=== PATIENT | female | born 1945 | race Caucasian/White ===

== ENCOUNTER 2016-09-26 12:42 | Inpatient (IN) | payer MEDICARE, OTHER ==
[~2016-09-26] VITALS: Ht 157.5 cm; Wt 84.5 kg
[2016-09-26] MEDS ORDERED: ONDANSETRON 4 MG VIAL ONE (13:57)
[2016-09-26] MEDS ORDERED: DILAUDID 1 MG/ML AMP ONE ×2 (13:57→20:26)
[2016-09-26] MEDS ORDERED: DUONEB INH ONE (15:15)
[2016-09-26] MEDS ORDERED: MORPHINE 2 MG/ML SYR ONE (18:03)
[2016-09-26] MEDS ORDERED: CEFTRIAXONE 1 GM VIAL ONE (18:44)
[2016-09-26] MEDS ORDERED: AZITHROMYCIN 500 MG VIAL IV ONE (18:44)
[2016-09-26] MEDS ORDERED: SODIUM CHLORIDE 0.9% 100 ML IV ONE (18:44)
[2016-09-26] MEDS ORDERED: SODIUM CHLORIDE 0.9% 250 ML IV ONE (18:44)
[2016-09-26] MEDS ORDERED: SODIUM CHLORIDE 0.9% 500 ML IV ONE (18:48)
[2016-09-26] MEDS ORDERED: BISACODYL EC 5 MG TAB PO PRN (18:50)
[2016-09-26] MEDS ORDERED: MAG HYDROX 30 ML UDC PO PRN (18:50)
[2016-09-26] MEDS ORDERED: SALINE FLUSH 10 ML FLUSH PRN (18:50)
[2016-09-26] MEDS ORDERED: ALU/MAG/SIM 30 ML UDC PO PRN (18:50)
[2016-09-26] MEDS ORDERED: BISACODYL 10 MG SUPP RECTAL PRN (18:50)
[2016-09-26 21:45] VITALS: BP_SYST 154; RESP 20; TEMP 100.4; Ht 157.5 cm; Wt 84.5 kg
[2016-09-26] MEDS: DILAUDID 1 MG/ML AMP IV PRN (23:04)
[2016-09-26 23:19] VITALS: RESP 20
[2016-09-26] MEDS: AZITHROMYCIN 500 MG in SODIUM CHLORIDE 0.9% 250 ML IV SCH (23:20)
[2016-09-26] MEDS ORDERED: GLUCAGON 1 MG VIAL IM PRN (23:20)
[2016-09-26] MEDS ORDERED: DEXTROSE 50% SYRINGE 50 ML IV PRN (23:20)
[2016-09-26] MEDS: METHYLPRED SOD SUCC 40 MG VIAL IV SCH ×2 (23:25→23:27)
[2016-09-26] MEDS: SALINE FLUSH 10 ML FLUSH SCH (23:31)
[2016-09-27] VITALS (10 sets, daily range): BP systolic 122–174; RESP 16–22; TEMP 97.5–98.2
[2016-09-27] MEDS: Atorvastatin 40 MG TAB PO SCH ×2 (01:01→20:45)
[2016-09-27] MEDS: CILOSTAZOL 100 MG TAB PO SCH ×3 (01:01→20:45)
[2016-09-27] MEDS: DILAUDID 1 MG/ML AMP IV PRN ×5 (05:42→22:17)
[2016-09-27] MEDS: SODIUM CHLORIDE 0.9% FLUSH BAG 500 ML IV SCH (06:32)
[2016-09-27] MEDS: DUONEB INH SCH ×5 (07:21→23:55)
[2016-09-27] MEDS: ATENOLOL 50 MG TAB PO SCH (08:16)
[2016-09-27] MEDS: EZETIMIBE 10 MG TAB PO SCH (08:16)
[2016-09-27] MEDS: SERTRALINE 100 MG TAB PO SCH (08:16)
[2016-09-27] MEDS: LISINOPRIL 20 MG TAB PO SCH (08:16)
[2016-09-27] MEDS: METHYLPRED SOD SUCC 40 MG VIAL IV SCH ×2 (08:18→16:26)
[2016-09-27] MEDS: SALINE FLUSH 10 ML FLUSH SCH ×2 (08:18→20:45)
[2016-09-27] MEDS: CEFTRIAXONE 1 GM in SODIUM CHLORIDE 0.9% 50 ML IV SCH (08:19)
[2016-09-27] MEDS: AZITHROMYCIN 500 MG in SODIUM CHLORIDE 0.9% 250 ML IV SCH (09:54)
[2016-09-27] MEDS: ZOLPIDEM 5 MG TAB PO SCH (20:45)
[2016-09-27] MEDS ORDERED: TAMSULOSIN 0.4 MG CAP PO SCH (21:00)
[2016-09-28] VITALS (11 sets, daily range): BP systolic 119–152; RESP 16–22; TEMP 97.5–98.3
[2016-09-28] MEDS: METHYLPRED SOD SUCC 40 MG VIAL IV SCH ×3 (00:31→16:34)
[2016-09-28] MEDS: SODIUM CHLORIDE 0.9% FLUSH BAG 500 ML IV SCH (04:58)
[2016-09-28] MEDS: DILAUDID 1 MG/ML AMP IV PRN ×4 (05:56→22:34)
[2016-09-28] MEDS: DUONEB INH SCH ×5 (07:23→23:35)
[2016-09-28] MEDS: SALINE FLUSH 10 ML FLUSH SCH ×2 (07:56→21:02)
[2016-09-28] MEDS: SERTRALINE 100 MG TAB PO SCH (07:57)
[2016-09-28] MEDS: LISINOPRIL 20 MG TAB PO SCH (07:57)
[2016-09-28] MEDS: ATENOLOL 50 MG TAB PO SCH (07:57)
[2016-09-28] MEDS: EZETIMIBE 10 MG TAB PO SCH (07:57)
[2016-09-28] MEDS: CILOSTAZOL 100 MG TAB PO SCH ×2 (07:57→21:02)
[2016-09-28] MEDS: CEFTRIAXONE 1 GM in SODIUM CHLORIDE 0.9% 50 ML IV SCH (07:58)
[2016-09-28] MEDS: AZITHROMYCIN 500 MG in SODIUM CHLORIDE 0.9% 250 ML IV SCH (09:16)
[2016-09-28] MEDS: Atorvastatin 40 MG TAB PO SCH (21:02)
[2016-09-28] MEDS: ZOLPIDEM 5 MG TAB PO SCH (22:33)
[2016-09-29 03:10] VITALS: BP_SYST 120; RESP 22; TEMP 98
[2016-09-29] MEDS: SODIUM CHLORIDE 0.9% FLUSH BAG 500 ML IV SCH (05:24)
[2016-09-29] MEDS: DUONEB INH SCH ×2 (07:23→10:31)
[2016-09-29 07:35] VITALS: BP_SYST 153; BP_SYST 156; BP_SYST 182; RESP 20; TEMP 98.5
[2016-09-29] MEDS: AZITHROMYCIN 500 MG in SODIUM CHLORIDE 0.9% 250 ML IV SCH (08:00)
[2016-09-29] MEDS: CEFTRIAXONE 1 GM in SODIUM CHLORIDE 0.9% 50 ML IV SCH (08:00)
[2016-09-29] MEDS: SALINE FLUSH 10 ML FLUSH SCH (08:00)
[2016-09-29] MEDS: SERTRALINE 100 MG TAB PO SCH (08:01)
[2016-09-29] MEDS: CILOSTAZOL 100 MG TAB PO SCH (08:01)
[2016-09-29] MEDS: EZETIMIBE 10 MG TAB PO SCH (08:01)
[2016-09-29] MEDS: ATENOLOL 50 MG TAB PO SCH (08:01)
[2016-09-29] MEDS: LISINOPRIL 20 MG TAB PO SCH (08:01)
[2016-09-29 11:14] VITALS: BP_SYST 139; RESP 20; TEMP 97.8
[2016-09-29 12:43] VITALS: BP_SYST 139; RESP 20; TEMP 97.8
[2016-09-29 12:45] VITALS: BP_SYST 139; RESP 20; TEMP 97.8
== END 2016-09-29 13:56 | disposition home health service (06) | DRG 183 ==
LOC: ENRESERVDT → ENRESERVTM → ER 12:42 → ENPENDDIS 18:50 → EMR 18:50 → 3NT 21:36
PROVIDERS: ADMIT Internal Medicine; ATTEND Internal Medicine
DX: S22.42XA Multiple fractures of ribs, left side, initial encounter for closed fracture (principal); J18.9 Pneumonia, unspecified organism; S27.321A Contusion of lung, unilateral, initial encounter; J44.1 Chronic obstructive pulmonary disease with (acute) exacerbation; S02.82XA Fracture of other specified skull and facial bones, left side, initial encounter for closed fracture; E11.40 Type 2 diabetes mellitus with diabetic neuropathy, unspecified; W18.30XA Fall on same level, unspecified, initial encounter; Y92.009 Unspecified place in unspecified non-institutional (private) residence as the place of occurrence of the external cause; R09.02 Hypoxemia; F17.210 Nicotine dependence, cigarettes, uncomplicated; F41.9 Anxiety disorder, unspecified; G47.00 Insomnia, unspecified; Z79.4 Long term (current) use of insulin; Z79.01 Long term (current) use of anticoagulants; Z79.52 Long term (current) use of systemic steroids
CPT/HCPCS: 36415; 70450; 70486; 71250; 80053; 82803; 82947; 83036; 83605; 83874; 84145; 85025; 85610; 86480; 87040; 94640; 94664; 94799; 96365; 96375; 96376